=== PATIENT | female | born 1950 | race Caucasian/White ===

== ENCOUNTER 2019-09-05 06:52 | Inpatient (IN) | payer OTHER ==
[~2019-09-05] VITALS: Ht 167.6 cm; Wt 127.5 kg
[~2019-09-05 06:52] MED LIST: CALC600T37 PO; CAR125T PO; CARI-277 PO; CITA20TA3 PO; DIAZ10TA PO; ERGO2000 PO; FER300LQ PO; GABA100C PO; HYDR-4833 PO; POTA12PO2 PO; SIMV-8 PO; SUCR1SUS10 PO
[2019-09-05 08:15] LABS: Basophils # (auto) 0.1 uL; Basophils % (auto) 0.6 % (0.0-2.0); Eosinophils # (auto) 0.1 uL; Eosinophils % (auto) 0.9 % (0.0-7.0); Hematocrit 35.2 % (36.0-46.0); Hemoglobin 11.4 g/dL (12.2-16.2); Lymphocytes # (auto) 0.8 uL; Lymphocytes % (auto) 8.8 % (10.0-50.0); Mean Corpuscular Hemoglobin 28.2 pg (28.0-32.0); Mean Corpuscular Hgb Conc. 32.3 g/dL (32.0-36.0); Mean Corpuscular Volume 87.3 fL (80.0-100.0); Monocytes # (auto) 0.5 uL; Monocytes % (auto) 5.4 % (0.0-12.0); Neutrophils # (auto) 7.7 uL; Neutrophils % (auto) 84.3 % (37.0-80.0); Nucleated Red Blood Cells % 0.1 %; Platelet Count (auto) 261 10^3/uL (140-450); Red Blood Cells 4.03 10^6/uL (4.0-5.20); Red Cell Distribution Width 18.2 % (11.8-14.3); White Blood Cell 9.1 10^3/uL (4.4-10.8)
[2019-09-05 08:30] LABS: INR 1.04 (0.9-1.15); Partial Thromboplastin Time 25.9 sec (23.64-32.05)
[2019-09-05 08:35] LABS: Albumin 3.1 g/dL (3.4-5.0); Calcium 8.5 mg/dL (8.5-10.1)
[2019-09-05 08:39] LABS: Bilirubin, Total 1.1 mg/dL (0.2-1.0); Total Protein 8.1 g/dL (6.4-8.2)
[2019-09-05] MEDS ORDERED: SODIUM CHLORIDE 0.9% 1,000 ML IV ONE (08:39)
[2019-09-05] MEDS: FUROSEMIDE 40 MG/4 ML VIAL IV ONE ×2 (08:45→09:25)
[2019-09-05] MEDS: SPIRONOLACTONE 25 MG TAB PO ONE ×2 (08:45→09:26)
[2019-09-05] MEDS ORDERED: CLOP75TA41 PO (10:26)
[2019-09-05] MEDS ORDERED: FURO40TA4 PO (10:29)
[2019-09-05] MEDS ORDERED: LEVO25TA6 PO (10:29)
[2019-09-05] MEDS ORDERED: IPRATROPIUM BROM 0.5 MG/2.5ML INH SOL NEB ONE (11:00)
[2019-09-05] MEDS ORDERED: ALBUTEROL SULF 2.5 MG/0.5ML(0.5%) NEB SOLN NEB ONE (11:00)
[2019-09-05 11:16] LABS: Urine Bacteria NONE SEEN /hpf (None Seen); Urine Blood Negative /uL (Negative); Urine Specific Gravity 1.006 (1.001-1.035); Urine WBC 1 /hpf (0 - 5)
[2019-09-05] MEDS ORDERED: ACETAMINOPHEN 325 MG TAB PO PRN (11:30)
[2019-09-05] MEDS ORDERED: MORPHINE SULF INJ 2 MG/ML SYRINGE 1ML IV PRN (11:30)
[2019-09-05] MEDS ORDERED: NITROGLYCERIN 0.4 MG SL TAB SL PRN (11:30)
[2019-09-05] MEDS ORDERED: MORPHINE SULFATE 4 MG/ML SYR/VIAL IV PRN (11:30)
[2019-09-05] MEDS: HYDROcodone-ACET 5/325MG TAB PO PRN (12:36)
--- NOTE | 2019-09-05 13:40 | NUR ---
REPORT RECEIVED FROM REGIONAL ENVIRONMENTAL MANAGER NIKOLE. PT ARRIVED TO UNIT, AWAKE, ALERT, ORIENTEDx4 ACCOMPANIED BY FAMILY. SOB ON EXERTION PT ON 3LNC 94% RUELAS CATH IN PLACE WITH PALE YELLOW URINE IN COLLECTING BAG. PT ORIENTED TO ROOM ENVIRONMENT AND EQUIPMENT, IV FLUIDS RESUMED PER ORDER. BED LOCKED AND IN LOWES POSITION, CALL LIGHT WITHIN REACH. WILL CONTINUE TO MONITOR.
[2019-09-05] MEDS ORDERED: HEPARIN SODIUM (PORCINE) 5000 UNITS/ML 1ML VIAL ONE (14:47)
[2019-09-05 14:59] VITALS: BP 175/64
--- NOTE | 2019-09-05 15:06 | NUR ---
SPOKE TO [facility] PHARMACIST REGARDING PIXIS DISCREPANCY ON TAKING HEPARIN VIAL. PER DUY OK TO ADMINISTER MEDICATION ON 1300 SLOT. STOCK MED NOT USED. ONLY ONE VIAL OF 5000UNITS PROCURED, WILL ADMINISTER PER EMAR.
[2019-09-05] MEDS: HEPARIN SODIUM (PORCINE) 5000 UNITS/ML 1ML VIAL SC SCH ×2 (15:10→22:04)
--- NOTE | 2019-09-05 15:30 | NUR ---
DR. CHENEY CONSULT CALLED.
--- NOTE | 2019-09-05 16:45 | NUR ---
PT C/O SOB; DR. PATTEN MADE AWARE. ORDERS RECEIVED FOR BREATHING Tx; ORDER INPUT.
[2019-09-05] MEDS: FUROSEMIDE 40 MG/4 ML VIAL IV SCH (18:16)
[2019-09-05 18:29] VITALS: BP 129/67
[2019-09-05] MEDS: IPRATROPIUM BROM 0.5 MG/2.5ML INH SOL NEB SCH ×2 (19:03→23:15)
[2019-09-05] MEDS: ALBUTEROL SULF 2.5 MG/0.5ML(0.5%) NEB SOLN NEB SCH ×2 (19:04→23:15)
--- NOTE | 2019-09-05 21:00 | NUR ---
RECEIVE IN BED WATCHING TV STATES SHE DOES NOT FEEL WELL NO SOB IS ON OXYGEN 3LITRE REPOSITIONED AND MADE COMFORTABLE
[2019-09-05 21:35] VITALS: BP 153/92
[2019-09-06] VITALS (7 sets, daily range): BP systolic 114–160; BP diastolic 57–92
[2019-09-06] MEDS: ALBUTEROL SULF 2.5 MG/0.5ML(0.5%) NEB SOLN NEB SCH ×6 (02:51→22:29)
[2019-09-06] MEDS: IPRATROPIUM BROM 0.5 MG/2.5ML INH SOL NEB SCH ×6 (02:51→22:29)
[2019-09-06] MEDS: ONDANSETRON HCL 4 MG/2 ML VIAL IV PRN ×2 (03:22→20:17)
[2019-09-06] MEDS: FUROSEMIDE 40 MG/4 ML VIAL IV SCH ×2 (05:44→18:08)
[2019-09-06] MEDS: HEPARIN SODIUM (PORCINE) 5000 UNITS/ML 1ML VIAL SC SCH ×2 (10:51→22:22)
[2019-09-06] MEDS: HYDROcodone-ACET 5/325MG TAB PO PRN ×3 (12:54→22:39)
--- NOTE | 2019-09-06 14:01 | NUR ---
I received a call from Kyle de la rosa [facility]-she provided me with authorization number for [facility]----[id number] and authorization number for FWW from is [id number].
--- NOTE | 2019-09-06 15:47 | NUR ---
D/C Planning Per consult for Home Health safety evaluation, physical therapy and FWW. Contacted [facility] ph:) Fax:) faxed medical records. Per Joan from [facility] Pt has been accepted and service to start within 48hrs upon d/c day. Contacted [facility]:( [phone]) Fax:) Faxed medical records spoke to Tiesha. Tiesha from & advised me FWW will be deliver at bedside upon d/c day. Contacted [facility] Ph:) Fax:( [phone]) faxed medical records. Authorization was given to ASHUTOSH Chand. Authorization has been given to home health and DME. Addendum: 09/06/19 at 1558 by CYNDEE SIMONS Amended: Links added.
--- NOTE | 2019-09-06 19:00 | NUR ---
OPENING NOTE Received report from day shift RN. Patient is in bed, A&O X's 4 with no s/s of distress. Patient reports feeling a little nauseas due to low appetite and taking medication throughout the day. Educated patient about medication to help this. Patient verbalized understanding and agreed to receive Zofran as ordered. Educated patient on POC and to use call light when in need of assistance and when needing to get out of bed. Patient verbalized understanding. Bed is in lowest/locked position with side rails up X's 2 and call light is within reach of patient. Commode is at bedside. Will continue care.
[2019-09-07] MEDS: IPRATROPIUM BROM 0.5 MG/2.5ML INH SOL NEB SCH ×4 (02:14→14:30)
[2019-09-07] MEDS: ALBUTEROL SULF 2.5 MG/0.5ML(0.5%) NEB SOLN NEB SCH ×4 (02:14→14:31)
[2019-09-07 05:06] VITALS: BP 128/96
[2019-09-07] MEDS: FUROSEMIDE 40 MG/4 ML VIAL IV SCH (05:29)
--- NOTE | 2019-09-07 06:34 | NUR ---
PATIENT SITTING AT EDGE OF BED Patient sitting at edge of bed. Patient A&O X's 4 with no s/s of distress. Call light is within reach of patient. Patient said she will call when ready to lay back down in bed.
--- NOTE | 2019-09-07 06:57 | NUR ---
PATIENT BACK INTO BED Patient back into bed. No s/s of distress noted.
[2019-09-07] MEDS: HYDROcodone-ACET 5/325MG TAB PO PRN (08:11)
[2019-09-07 08:41] VITALS: BP 103/77
--- NOTE | 2019-09-07 09:26 | NUR ---
Hospitalist at bedside MD Fleming at bedside, aware of patient's status. New orders received for dc home this afternoon. Patient agrees and verbalized understanding.
[2019-09-07] MEDS ORDERED: DIAZEPAM 5 MG TAB PO ONE (09:30)
[2019-09-07] MEDS ORDERED: CITALOPRAM HYDROBR 20 MG TAB PO ONE (09:30)
[2019-09-07 10:26] LABS: BUN/Creatinine Ratio 13.6; Calcium 8.4 mg/dL (8.5-10.1); Potassium 3.6 mmol/L (3.5-5.1)
--- NOTE | 2019-09-07 10:30 | NUR ---
Regarding meds Patient states she already had Celexa because her brought it from home so she took it. Pt instructed to not take any other meds unless given by primary rn she verbalized understanding. Patient's also states she does not take Valium or has taken it for "a long time". Valium and Celexa not given. Will dc as ordered.
[2019-09-07] MEDS: HEPARIN SODIUM (PORCINE) 5000 UNITS/ML 1ML VIAL SC SCH (10:32)
[2019-09-07 13:00] VITALS: BP 144/78
--- NOTE | 2019-09-07 13:30 | NUR ---
Larry catheter dc'd Order to discontinue larry catheter. Larry dc'd with clean technique following deflation of balloon. Patient tolerated well with no complaints of pain. Continue care.
--- NOTE | 2019-09-07 16:10 | NUR ---
Discharge instructions given as ordered. Encourage to follow up with PMD as instructed. All questions and concerns addressed. Patient verbalized understanding. Medication reconciliation form completed and copy given to patient. IV removed with catheter intact, pressure dressing applied. Telemetry unit returned to ICU. Patient taken to vehicle via wheelchair with all personal belongings including home portable oxygen, accompanied by staff and family member. No distress noted at time of departure.
== END 2019-09-07 16:10 | disposition home health service (06) | DRG 189 ==
LOC: ER 06:52 → TELE 06:53 → TELE-CENTR 13:33
PROVIDERS: ADMIT Internal Medicine; ATTEND Internal Medicine
DX: J96.20 Acute and chronic respiratory failure, unspecified whether with hypoxia or hypercapnia (principal); I50.43 Acute on chronic combined systolic (congestive) and diastolic (congestive) heart failure; I13.0 Hypertensive heart and chronic kidney disease with heart failure and stage 1 through stage 4 chronic kidney disease, or unspecified chronic kidney disease; E44.1 Mild protein-calorie malnutrition; Z68.42 Body mass index [BMI] 45.0-49.9, adult; J44.9 Chronic obstructive pulmonary disease, unspecified; N18.9 Chronic kidney disease, unspecified; F41.9 Anxiety disorder, unspecified; E78.5 Hyperlipidemia, unspecified; E66.01 Morbid (severe) obesity due to excess calories; E11.22 Type 2 diabetes mellitus with diabetic chronic kidney disease; F17.210 Nicotine dependence, cigarettes, uncomplicated; E11.21 Type 2 diabetes mellitus with diabetic nephropathy; E03.9 Hypothyroidism, unspecified; I25.10 Atherosclerotic heart disease of native coronary artery without angina pectoris; Z90.710 Acquired absence of both cervix and uterus; Z99.81 Dependence on supplemental oxygen; Z88.5 Allergy status to narcotic agent; Z91.19 Patient's noncompliance with other medical treatment and regimen; Z90.49 Acquired absence of other specified parts of digestive tract; Z82.49 Family history of ischemic heart disease and other diseases of the circulatory system; Z83.3 Family history of diabetes mellitus
CPT/HCPCS: 36415; 71046; 80048; 80053; 81001; 83735; 83880; 84443; 84484; 85025; 85610; 85730; 93005; 93306; 94640; 94761; 96361; 96374; G0378; J2405

== ENCOUNTER 2020-05-15 20:08 | Inpatient (IN) | payer OTHER ==
[~2020-05-15] VITALS: Ht 162.6 cm; Wt 132.2 kg
[~2020-05-15 20:08] MED LIST changes: +CLOP75TA41 PO; +FURO40TA4 PO; +LEVO25TA6 PO; -SIMV-8 PO
[2020-05-15] MEDS ORDERED: ALBUTEROL SULF 2.5 MG/0.5ML(0.5%) NEB SOLN HHN ONE (20:30)
[2020-05-15] MEDS ORDERED: methylPREDNISolone SOD SUCC 125 MG/2 ML VL IV ONE (20:30)
[2020-05-15] MEDS ORDERED: IPRATROPIUM BROM 0.5 MG/2.5ML INH SOL HHN ONE (20:30)
[2020-05-15 21:33] LABS: Basophils # (auto) 0.1 10 ^3/uL (0-0.2); Basophils % (auto) 0.6 % (0.0-2.0); Eosinophils # (auto) 0.2 10 ^3/uL (0-0.8); Eosinophils % (auto) 1.7 % (0.0-7.0); Hematocrit 35.1 % (36.0-46.0); Hemoglobin 11.6 g/dL (12.2-16.2); Lymphocytes # (auto) 0.8 10 ^3/uL (0.4-5.4); Lymphocytes % (auto) 8.4 % (10.0-50.0); Mean Corpuscular Hemoglobin 28.4 pg (28.0-32.0); Mean Corpuscular Hgb Conc. 33.1 g/dL (32.0-36.0); Mean Corpuscular Volume 85.9 fL (80.0-100.0); Monocytes # (auto) 0.6 10 ^3/uL (0-1.3); Monocytes % (auto) 5.9 % (0.0-12.0); Neutrophils # (auto) 7.8 10 ^3/uL (1.6-8.6); Neutrophils % (auto) 83.4 % (37.0-80.0); Nucleated Red Blood Cells % 0.2 %; Platelet Count (auto) 212 10^3/uL (140-450); Red Blood Cells 4.09 10^6/uL (4.0-5.20); Red Cell Distribution Width 18.5 % (11.8-14.3); White Blood Cell 9.4 10^3/uL (4.4-10.8)
[2020-05-15 21:48] LABS: Urine Bacteria MANY /hpf (None Seen); Urine Blood Negative /uL (Negative); Urine Mucus FEW (None Seen); Urine Specific Gravity 1.008 (1.001-1.035); Urine WBC 130 /hpf (0 - 5)
[2020-05-15 21:50] LABS: Alanine Aminotransferase 14 U/L (13-56); Anion Gap 9 (5-15); Aspartate Aminotransferase 13 U/L (15-37); BUN/Creatinine Ratio 16.9; Blood Urea Nitrogen 35 mg/dL (7-18); Calcium 8.3 mg/dL (8.5-10.1); Carbon Dioxide 28 mmol/L (21-32); Chloride 99 mmol/L (98-107); GFR African American 30 mL/min; GFR Non-African American 25 mL/min; Glucose 163 mg/dL (74-106); Magnesium 2.2 mg/dL (1.6-2.6); Potassium 3.4 mmol/L (3.5-5.1); Sodium 136 mmol/L (136-145)
[2020-05-15 21:52] LABS: Lactic Acid w/Reflex 2.3 mmol/L (0.4-2.0)
[2020-05-15 21:55] LABS: Alkaline Phosphatase 120 U/L (45-117); Bilirubin, Total 0.7 mg/dL (0.2-1.0)
[2020-05-15] MEDS ORDERED: cefTRIAXone 1GM/50ML D5W 50 ML IV ONE (22:15)
[2020-05-15] MEDS ORDERED: FUROSEMIDE 20 MG/2 ML VIAL IV ONE (22:15)
[2020-05-15] MEDS ORDERED: SODIUM CHLORIDE 0.9% 1,000 ML IV ONE (22:15)
[2020-05-15] MEDS ORDERED: TEMAZEPAM 15 MG CAP PO PRN (22:45)
[2020-05-15] MEDS ORDERED: ONDANSETRON HCL 4 MG/2 ML VIAL IV PRN (22:45)
[2020-05-15] MEDS ORDERED: POTASSIUM CHL 20 Meq TABLET PO ONE (22:45)
[2020-05-15] MEDS ORDERED: MORPHINE SULF INJ 2 MG/ML SYRINGE 1ML IV PRN (22:45)
[2020-05-15] MEDS ORDERED: NITROGLYCERIN 0.4 MG SL TAB SL PRN (22:45)
[2020-05-15] MEDS ORDERED: ACETAMINOPHEN 325 MG TAB PO PRN (22:45)
[2020-05-15] MEDS ORDERED: DEXTROSE (50%) 50ML SYRG IV PRN (22:45)
[2020-05-16] VITALS (8 sets, daily range): BP systolic 101–134; BP diastolic 57–89
[2020-05-16] MEDS: ALBUTEROL SULF 2.5 MG/0.5ML(0.5%) NEB SOLN NEB SCH ×4 (00:05→18:08)
[2020-05-16] MEDS: IPRATROPIUM BROM 0.5 MG/2.5ML INH SOL NEB PRN ×4 (00:05→18:08)
[2020-05-16] MEDS: ACCU-CHEK COMFORT CURVE STRIP VI SCH ×4 (01:18→17:30)
[2020-05-16] MEDS: InsuLIN REG 1unit/0.01ml Soln (100units/ml) SC SCH ×4 (01:34→18:48)
--- NOTE | 2020-05-16 02:43 | NUR ---
Telemetry admit from ER DAVIDE HUNT admitted to Telemetry unit. Patient oriented to SHARYN GOODMAN, aman RN, unit, room, bed, and unit policies regarding patient care and visiting hours. Patient now on continuous telemetry monitoring, tele box #84 and telemetry reading on arrival to unit is atrial fibrillation. Patient placed on bedside oxygen, weighed by bed scale and encouraged to call if they need something. All questions and concerns addressed, patient verbalized understanding. Patient able to stand up and transfer to bedside commode. Skin intact, bruising noted to BUE. On 02 3L via n/c, 02 sat 92-93%.
[2020-05-16] MEDS: LEVOTHYROXINE SODIUM 25 MCG TAB PO SCH (05:23)
[2020-05-16] MEDS: GABAPENTIN 100 MG CAP PO SCH ×3 (05:23→21:19)
[2020-05-16] MEDS ORDERED: FUROSEMIDE 40 MG/4 ML VIAL IV SCH (06:00)
[2020-05-16 06:20] LABS: Potassium 3.4 mmol/L (3.5-5.1)
[2020-05-16 06:25] LABS: Basophils # (auto) 0 10 ^3/uL (0-0.2); Calcium 8.6 mg/dL (8.5-10.1); Eosinophils # (auto) 0 10 ^3/uL (0-0.8); Hemoglobin 11.4 g/dL (12.2-16.2); Lymphocytes # (auto) 0.4 10 ^3/uL (0.4-5.4); Lymphocytes % (auto) 4.5 % (10.0-50.0); Mean Corpuscular Hemoglobin 28.2 pg (28.0-32.0); Mean Corpuscular Hgb Conc. 32.6 g/dL (32.0-36.0); Mean Corpuscular Volume 86.5 fL (80.0-100.0); Monocytes # (auto) 0.1 10 ^3/uL (0-1.3); Monocytes % (auto) 0.6 % (0.0-12.0); Neutrophils # (auto) 9.2 10 ^3/uL (1.6-8.6); Neutrophils % (auto) 94.9 % (37.0-80.0); Nucleated Red Blood Cells % 0.1 %; Platelet Count (auto) 217 10^3/uL (140-450); Red Blood Cells 4.04 10^6/uL (4.0-5.20); Red Cell Distribution Width 18.2 % (11.8-14.3); White Blood Cell 9.7 10^3/uL (4.4-10.8)
--- NOTE | 2020-05-16 07:28 | NUR ---
OPENING SHIFT NOTE Assumed care of patient from nightclub manager RN. Patient is alert and oriented x4, no signs of distress noted. Patient was updated on the plan of care and verbalized understanding. Patient is on oxygen at 3L/min via nasal cannula saturation is 93%. Commode at bedside. Bed is locked, in the lowest position, side rails up x2 and call light is in reach. Patient was encouraged to call for assistance as needed.
[2020-05-16] MEDS ORDERED: DIGOXIN (250MCG/ML) 2 ML AMPULE IV ONE (09:45)
[2020-05-16] MEDS ORDERED: CLOPIDOGREL BISULFATE 75 MG TAB PO SCH (10:00)
[2020-05-16] MEDS ORDERED: POTASSIUM CHL 10 Meq TABLET PO SCH (10:00)
[2020-05-16 11:03] LABS: INR 1.07 (0.9-1.15)
[2020-05-16] MEDS: CARVEDILOL 12.5 MG TAB PO SCH ×2 (11:04→21:20)
[2020-05-16] MEDS: PANTOPRAZOLE 40 MG TAB PO SCH (11:04)
[2020-05-16] MEDS ORDERED: POTASSIUM CHL 20 Meq TABLET PO ONE (12:15)
[2020-05-16] MEDS ORDERED: CITA10TA70 PO (12:47)
[2020-05-16] MEDS ORDERED: LEVO50TA7 PO (12:47)
[2020-05-16] MEDS ORDERED: ERGO2000 PO (12:47)
[2020-05-16] MEDS ORDERED: SILV-21 TOP (12:47)
[2020-05-16] MEDS ORDERED: FLUT1AER6 IN ×2 (12:47→16:49)
[2020-05-16] MEDS ORDERED: PANT40TA2 PO (12:47)
[2020-05-16] MEDS ORDERED: ATOR10TA52 PO (12:47)
[2020-05-16] MEDS ORDERED: FURO40TA4 PO (12:47)
[2020-05-16] MEDS ORDERED: BACL10TA PO (12:47)
[2020-05-16] MEDS ORDERED: CHOL20009 PO (12:48)
--- NOTE | 2020-05-16 13:36 | NUR ---
PAGED MD CHENEY regarding cardiac clearance for discharge, awaiting call back.
--- NOTE | 2020-05-16 14:12 | NUR ---
CALL FROM CHENEY Per MD patient is cleared for discharge, patient to follow up as out patient.
--- NOTE | 2020-05-16 14:15 | NUR ---
MESSAGE LEFT FOR Rob BEDOYA. Regarding patient being cleared by Azul for discharge.
--- NOTE | 2020-05-16 14:40 | NUR ---
IV insertion IV access obtained, via clean sterile technique by inserting 22 gauge catheter at left forearm after 4 attempts. IV secured properly. No trauma to site. Patient tolerated well. IV to the left hand was removed with clean technique and pressure dressing applied.
[2020-05-16] MEDS ORDERED: CITA10TA59 PO (16:49)
[2020-05-16] MEDS ORDERED: DIPH25CA66 PO (16:49)
[2020-05-16] MEDS ORDERED: FAMO-12 PO (16:49)
--- NOTE | 2020-05-16 18:34 | NUR ---
MOQATTASH AT BEDSIDE UPDATED ON PATIENT STATUS, NEW ORDERS TO CONTINUE HOME MEDICATIONS, WILL INPUT.
[2020-05-16] MEDS: RIVAROXABAN 15 MG TAB PO SCH (18:47)
[2020-05-16] MEDS ORDERED: PROCHLORPERAZINE MALEATE 10 MG TAB PO PRN (19:00)
[2020-05-16] MEDS ORDERED: diphenhdrAMINE HCL 25 MG CAP PO PRN (19:00)
--- NOTE | 2020-05-16 19:20 | NUR ---
Opening Shift Note Received report from LENARD Breaux and assumed care of patient, awake and alert. No S/S of distress/SOB or pain. Instructed patient and to call for assist if needed and patient verbalized understanding . Will continue to monitor .
[2020-05-16] MEDS: ATORVASTATIN 20 MG TAB PO SCH (21:19)
[2020-05-16] MEDS: HYDROcodone-ACET 5/325MG TAB PO PRN (21:24)
[2020-05-17] MEDS: IPRATROPIUM BROM 0.5 MG/2.5ML INH SOL NEB PRN ×4 (00:18→17:58)
[2020-05-17] MEDS: ALBUTEROL SULF 2.5 MG/0.5ML(0.5%) NEB SOLN NEB SCH ×4 (00:18→17:58)
[2020-05-17] MEDS: ACCU-CHEK COMFORT CURVE STRIP VI SCH ×4 (00:25→17:29)
[2020-05-17] MEDS: InsuLIN REG 1unit/0.01ml Soln (100units/ml) SC SCH ×4 (00:26→17:29)
[2020-05-17 05:00] VITALS: BP 106/70
[2020-05-17] MEDS: LEVOTHYROXINE SODIUM 25 MCG TAB PO SCH (06:17)
[2020-05-17] MEDS: GABAPENTIN 100 MG CAP PO SCH ×3 (06:17→21:31)
[2020-05-17] MEDS: SUCRALFATE 1 GM/10 ML ORAL SUSP PO SCH ×3 (06:17→16:51)
--- NOTE | 2020-05-17 07:45 | NUR ---
Opening Note Assumed pt care from NOC RN. Pt is a/ox4 with no s/s of distress or SOB. Pt is currently sitting upright in bed on 3L NC with no complaints at this time. Discussed POC with pt and pending VQ scan; pt verbalized understanding. Safety measures maintained with call light within reach, bed in lowest position and side rails up. Will continue to monitor for changes.
[2020-05-17] MEDS: FERROUS SULFATE 325 MG TAB PO SCH ×2 (07:50→17:29)
--- NOTE | 2020-05-17 08:00 | NUR ---
Pt Off Unit Pt off unit for VQ scan. Transferred via wheelchair. A/ox4 with no s/s of distress or SOB. Addendum: 05/17/20 at 0824 by NENA CHE RN RN Pt back on unit. A/ox4 with no s/s of distress.
[2020-05-17 08:18] VITALS: BP 100/58
[2020-05-17] MEDS: PANTOPRAZOLE 40 MG TAB PO SCH (08:53)
[2020-05-17] MEDS: CARVEDILOL 12.5 MG TAB PO SCH ×2 (08:53→21:31)
[2020-05-17] MEDS: HYDROcodone-ACET 5/325MG TAB PO PRN ×2 (08:56→21:32)
[2020-05-17] MEDS ORDERED: FUROSEMIDE 40 MG TAB PO SCH (10:00)
[2020-05-17] MEDS ORDERED: CITALOPRAM HYDROBR 20 MG TAB PO SCH (10:00)
[2020-05-17] MEDS ORDERED: POTASSIUM CHL 20 Meq TABLET PO SCH (10:00)
[2020-05-17 13:20] VITALS: BP 119/73
--- NOTE | 2020-05-17 13:28 | NUR ---
Left Message for Dr Rob Kolb Left message regarding cardiac clearance from Dr Azul. Pending d/c orders. Will continue to monitor.
[2020-05-17 17:16] VITALS: BP 105/56
[2020-05-17] MEDS: RIVAROXABAN 15 MG TAB PO SCH (17:29)
--- NOTE | 2020-05-17 19:30 | NUR ---
Opening Note Received report from willie Mott RN. Assumed care of patient, awake and alert. No S/S of distress/SOB or pain. On 2LNC saturating at 96%. Instructed on POC and to call for assist PRN, will continue to monitor for changes Q1hr and PRN. Bed placed in lowest position, bed alarm turned on and call light within reach.
[2020-05-17 20:14] VITALS: BP 124/81
[2020-05-17] MEDS ORDERED: metFORMIN HYDROCHLORIDE 500 MG TAB PO SCH (20:30)
[2020-05-17] MEDS ORDERED: RIV15T PO (20:33)
[2020-05-17] MEDS ORDERED: IPR002IS NEB (20:33)
[2020-05-17] MEDS ORDERED: FURO40TA4 PO (20:33)
[2020-05-17] MEDS ORDERED: LEVO50TA7 PO (20:36)
--- NOTE | 2020-05-17 20:36 | NUR ---
Dr Ana Paula Kolb at the station. Discharged order in. Will let patient know.
[2020-05-17] MEDS ORDERED: NITR-52 PO (21:05)
[2020-05-17] MEDS ORDERED: NITROFURANTOIN 100 mg CAP PO ONE ×2 (21:15→22:00)
--- NOTE | 2020-05-17 21:30 | NUR ---
Dr Kolb wants to make sure patient will get her first dose of macrobid 100 mg before discharge.
[2020-05-17] MEDS: ATORVASTATIN 20 MG TAB PO SCH (21:32)
--- NOTE | 2020-05-17 22:01 | NUR ---
Macrobid given as ordered
--- NOTE | 2020-05-17 22:21 | NUR ---
Discharge instructions given as ordered. Encourage to follow up with PMD as instructed. All questions and concerns addressed. Patient verbalized understanding. Medication reconciliation form completed and copy given to patient. IV removed with catheter intact, pressure dressing applied. Telemetry unit returned to ICU. Patient taken to vehicle via wheelchair with all personal belongings, accompanied by staff. No distress noted at time of departure.
[2020-05-18] MEDS ORDERED: NITROFURANTOIN 100 mg CAP PO SCH (10:00)
== END 2020-05-17 22:05 | disposition home or self-care (01) | DRG 291 ==
LOC: EDBD 20:08 → ER 20:08 → TELE 20:09 → TELE-WESTW 23:34 → WEST WING 23:49 → TELE-WESTW 23:50
PROVIDERS: ADMIT Nurse Practitioner; ATTEND Internal Medicine
DX: I13.0 Hypertensive heart and chronic kidney disease with heart failure and stage 1 through stage 4 chronic kidney disease, or unspecified chronic kidney disease (principal); I50.33 Acute on chronic diastolic (congestive) heart failure; Z68.43 Body mass index [BMI] 50.0-59.9, adult; N39.0 Urinary tract infection, site not specified; J96.11 Chronic respiratory failure with hypoxia; N18.3 Chronic kidney disease, stage 3 (moderate); E66.01 Morbid (severe) obesity due to excess calories; E03.9 Hypothyroidism, unspecified; E11.22 Type 2 diabetes mellitus with diabetic chronic kidney disease; Z91.19 Patient's noncompliance with other medical treatment and regimen; I25.10 Atherosclerotic heart disease of native coronary artery without angina pectoris; E78.5 Hyperlipidemia, unspecified; I27.20 Pulmonary hypertension, unspecified; I48.91 Unspecified atrial fibrillation; Z82.49 Family history of ischemic heart disease and other diseases of the circulatory system; Z90.710 Acquired absence of both cervix and uterus; Z83.3 Family history of diabetes mellitus; J44.9 Chronic obstructive pulmonary disease, unspecified; Z90.49 Acquired absence of other specified parts of digestive tract; I50.82 Biventricular heart failure; F32.9 Major depressive disorder, single episode, unspecified
CPT/HCPCS: 36415; 36600; 71045; 78582; 80048; 80053; 81001; 82805; 82962; 83605; 83735; 83880; 84443; 84484; 85025; 85379; 85610; 87040; 87086; 87804; 93005; 93970; 94640; 96361; 96365; 96375; G0378; J0696; J1815; Q0164

== ENCOUNTER 2020-12-30 18:40 | Inpatient (IN) | payer OTHER ==
[~2020-12-30] VITALS: Ht 165.1 cm; Wt 134.1 kg
[~2020-12-30 18:40] MED LIST changes: +ATOR10TA52 PO; -CALC600T37 PO; -CARI-277 PO; +CHOL20009 PO; +CITA10TA70 PO; -CITA20TA3 PO; -CLOP75TA41 PO; -DIAZ10TA PO; +DIPH25CA66 PO; -ERGO2000 PO; +FLUT1AER6 IN; +IPR002IS NEB; -LEVO25TA6 PO; +LEVO50TA7 PO; +NITR-52 PO; +PANT40TA2 PO; +RIV15T PO
[2020-12-30 20:03] LABS: Basophils # (auto) 0 10 ^3/uL (0-0.2); Basophils % (auto) 0.3 % (0.0-2.0); Eosinophils # (auto) 0 10 ^3/uL (0-0.8); Eosinophils % (auto) 0.1 % (0.0-7.0); Hematocrit 35.2 % (36.0-46.0); Hemoglobin 11.7 g/dL (12.2-16.2); Lymphocytes # (auto) 0.4 10 ^3/uL (0.4-5.4); Lymphocytes % (auto) 5.8 % (10.0-50.0); Mean Corpuscular Hemoglobin 28.7 pg (28.0-32.0); Mean Corpuscular Hgb Conc. 33.2 g/dL (32.0-36.0); Mean Corpuscular Volume 86.4 fL (80.0-100.0); Monocytes # (auto) 0.4 10 ^3/uL (0-1.3); Monocytes % (auto) 6.6 % (0.0-12.0); Neutrophils # (auto) 5.4 10 ^3/uL (1.6-8.6); Neutrophils % (auto) 87.2 % (37.0-80.0); Nucleated Red Blood Cells % 0.1 %; Platelet Count (auto) 87 10^3/uL (140-450); Red Blood Cells 4.07 10^6/uL (4.0-5.20); Red Cell Distribution Width 18.1 % (11.8-14.3); White Blood Cell 6.2 10^3/uL (4.4-10.8)
[2020-12-30 20:30] LABS: Albumin 2.9 g/dL (3.4-5.0); Calcium 7.8 mg/dL (8.5-10.1); Potassium 3.2 mmol/L (3.5-5.1)
[2020-12-30] MEDS ORDERED: AZITHROMYCIN 500MG/ 250ML 250 ML IV ONE (20:30)
[2020-12-30 20:38] LABS: BUN/Creatinine Ratio 18.7; Bilirubin, Total 0.5 mg/dL (0.2-1.0); Total Protein 6.8 g/dL (6.4-8.2)
[2020-12-30 21:15] LABS: INR 1.03 (0.9-1.15)
[2020-12-30] MEDS ORDERED: ASPirin 81 mg TAB PO ONE (21:15)
[2020-12-30] MEDS ORDERED: ACETAMINOPHEN 325 MG TAB PO ONE (22:15)
[2020-12-30] MEDS ORDERED: DOCUSATE SOD 100 MG CAP PO PRN (23:00)
[2020-12-30] MEDS ORDERED: ONDANSETRON HCL 4 MG/2 ML VIAL IV PRN (23:00)
[2020-12-30] MEDS ORDERED: DEXTROSE (50%) 50ML SYRG IV PRN (23:00)
[2020-12-30] MEDS ORDERED: ACETAMINOPHEN 325 MG TAB PO PRN (23:00)
[2020-12-30] MEDS ORDERED: NITROGLYCERIN 0.4 MG SL TAB SL PRN (23:00)
[2020-12-30] MEDS: POTASSIUM CHL 20MEQ/100ML 100 ML IV ONE (23:00)
[2020-12-30] MEDS: DOXYCYCLINE 100MG/250ML 250 ML IV SCH (23:40)
[2020-12-31] MEDS: HYDROcodone-ACET 5/325MG TAB PO PRN (01:12)
[2020-12-31 01:26] LABS: BUN/Creatinine Ratio 19.7; Calcium 8.2 mg/dL (8.5-10.1); Potassium 3.2 mmol/L (3.5-5.1)
[2020-12-31 01:29] LABS: Bilirubin, Total 0.6 mg/dL (0.2-1.0); Total Protein 6.7 g/dL (6.4-8.2)
[2020-12-31] MEDS: POTASSIUM CHL 20MEQ/100ML 100 ML IV ONE (01:41)
[2020-12-31] MEDS ORDERED: ALBUTEROL SULF 2.5 MG/0.5ML(0.5%) NEB SOLN NEB SCH (02:00)
[2020-12-31] MEDS ORDERED: IPRATROPIUM BROM 0.5 MG/2.5ML INH SOL NEB SCH (02:00)
[2020-12-31 02:27] LABS: Cholesterol 115 mg/dL (< 200); HDL Cholesterol 43 mg/dL (40-59); LDL Cholesterol 59 mg/dL (< 100); Triglycerides 97 mg/dL (< 150)
[2020-12-31 03:04] LABS: Basophils # (auto) 0 10 ^3/uL (0-0.2); Basophils % (auto) 0.4 % (0.0-2.0); Eosinophils # (auto) 0 10 ^3/uL (0-0.8); Eosinophils % (auto) 0.1 % (0.0-7.0); Hemoglobin 11.2 g/dL (12.2-16.2); Lymphocytes # (auto) 0.5 10 ^3/uL (0.4-5.4); Mean Corpuscular Hemoglobin 28.7 pg (28.0-32.0); Monocytes # (auto) 0.4 10 ^3/uL (0-1.3); Monocytes % (auto) 7.8 % (0.0-12.0); Neutrophils # (auto) 4.4 10 ^3/uL (1.6-8.6); Neutrophils % (auto) 82.7 % (37.0-80.0); Nucleated Red Blood Cells % 0.1 %; Platelet Count (auto) 81 10^3/uL (140-450); Red Blood Cells 3.91 10^6/uL (4.0-5.20); Red Cell Distribution Width 18.1 % (11.8-14.3); White Blood Cell 5.3 10^3/uL (4.4-10.8)
[2020-12-31] MEDS: HEPARIN SODIUM (PORCINE) 5000 UNITS/ML 1ML VIAL SC SCH ×2 (04:45→05:53)
[2020-12-31 04:48] VITALS: BP 127/83
[2020-12-31] MEDS: SODIUM CHLOR 0.9% PF (SALINE LOCK) 10ML VIAL/SYR IV SCH ×3 (05:53→22:19)
[2020-12-31] MEDS: InsuLIN REG 1unit/0.01ml Soln (100units/ml) SC SCH ×4 (06:28→22:19)
[2020-12-31] MEDS: ACCU-CHEK COMFORT CURVE STRIP VI SCH ×4 (06:28→22:19)
[2020-12-31] MEDS: FUROSEMIDE 20 MG/2 ML VIAL IV SCH ×2 (06:28→17:55)
[2020-12-31] MEDS: LEVOTHYROXINE SODIUM 25 MCG TAB PO SCH (06:28)
[2020-12-31 08:00] VITALS: BP 133/66
[2020-12-31 09:13] LABS: Basophils # (auto) 0 10 ^3/uL (0-0.2); Basophils % (auto) 0.3 % (0.0-2.0); Eosinophils # (auto) 0 10 ^3/uL (0-0.8); Eosinophils % (auto) 0.2 % (0.0-7.0); Hemoglobin 12.4 g/dL (12.2-16.2); Lymphocytes # (auto) 0.6 10 ^3/uL (0.4-5.4); Lymphocytes % (auto) 10.8 % (10.0-50.0); Mean Corpuscular Hemoglobin 28.4 pg (28.0-32.0); Mean Corpuscular Hgb Conc. 32.6 g/dL (32.0-36.0); Monocytes # (auto) 0.3 10 ^3/uL (0-1.3); Monocytes % (auto) 5.9 % (0.0-12.0); Neutrophils # (auto) 4.7 10 ^3/uL (1.6-8.6); Neutrophils % (auto) 82.8 % (37.0-80.0); Nucleated Red Blood Cells % 0.1 %; Platelet Count (auto) 84 10^3/uL (140-450); Red Blood Cells 4.36 10^6/uL (4.0-5.20); Red Cell Distribution Width 18.4 % (11.8-14.3); White Blood Cell 5.7 10^3/uL (4.4-10.8)
[2020-12-31 09:50] LABS: BUN/Creatinine Ratio 18.3; Bilirubin, Total 0.7 mg/dL (0.2-1.0); Calcium 7.8 mg/dL (8.5-10.1); Total Protein 7.2 g/dL (6.4-8.2)
[2020-12-31] MEDS ORDERED: HEPARIN SODIUM (PORCINE) 5000 UNITS/ML 1ML VIAL SC SCH (10:00)
[2020-12-31] MEDS ORDERED: ASPirin 81 mg TAB PO SCH (10:00)
[2020-12-31] MEDS: FAMOTIDINE (10MG/ML) 2ML VL IV SCH ×2 (10:34→22:19)
[2020-12-31] MEDS: ASPirin 81 mg TAB PO SCH (10:34)
[2020-12-31] MEDS: MULTIPLE VITAMIN TAB PO SCH (10:35)
[2020-12-31] MEDS: ASCORBIC ACID 500 MG TAB PO SCH ×2 (10:35→22:19)
[2020-12-31] MEDS: ZINC SULFATE 220mg CAP or TAB PO SCH (10:35)
[2020-12-31] MEDS: DOXYCYCLINE 100MG/250ML 250 ML IV SCH ×2 (10:36→22:30)
[2020-12-31] MEDS ORDERED: FUROSEMIDE 20 MG/2 ML VIAL IV ONE (13:30)
[2020-12-31 16:00] VITALS: BP 144/93
[2021-01-01] VITALS: BP 143/93
[2021-01-01] MEDS: HYDROcodone-ACET 5/325MG TAB PO PRN (03:00)
[2021-01-01] MEDS: FUROSEMIDE 20 MG/2 ML VIAL IV SCH ×2 (06:21→17:35)
[2021-01-01] MEDS: LEVOTHYROXINE SODIUM 25 MCG TAB PO SCH (06:21)
[2021-01-01] MEDS: InsuLIN REG 1unit/0.01ml Soln (100units/ml) SC SCH ×4 (06:21→21:31)
[2021-01-01] MEDS: SODIUM CHLOR 0.9% PF (SALINE LOCK) 10ML VIAL/SYR IV SCH ×3 (06:21→21:29)
[2021-01-01] MEDS: ACCU-CHEK COMFORT CURVE STRIP VI SCH ×4 (06:27→21:31)
[2021-01-01 08:00] VITALS: BP 140/77
[2021-01-01 08:23] LABS: Basophils # (auto) 0 10 ^3/uL (0-0.2); Basophils % (auto) 0.3 % (0.0-2.0); Eosinophils # (auto) 0 10 ^3/uL (0-0.8); Eosinophils % (auto) 0.1 % (0.0-7.0); Hematocrit 33.7 % (36.0-46.0); Hemoglobin 11.5 g/dL (12.2-16.2); Lymphocytes # (auto) 0.4 10 ^3/uL (0.4-5.4); Lymphocytes % (auto) 7.5 % (10.0-50.0); Mean Corpuscular Hemoglobin 28.8 pg (28.0-32.0); Mean Corpuscular Hgb Conc. 34.2 g/dL (32.0-36.0); Mean Corpuscular Volume 84.1 fL (80.0-100.0); Monocytes # (auto) 0.3 10 ^3/uL (0-1.3); Monocytes % (auto) 5.1 % (0.0-12.0); Neutrophils # (auto) 4.8 10 ^3/uL (1.6-8.6); Nucleated Red Blood Cells % 0.1 %; Platelet Count (auto) 84 10^3/uL (140-450); Red Blood Cells 4.01 10^6/uL (4.0-5.20); Red Cell Distribution Width 17.8 % (11.8-14.3); White Blood Cell 5.5 10^3/uL (4.4-10.8)
[2021-01-01 08:50] LABS: BUN/Creatinine Ratio 17.6
[2021-01-01 09:02] LABS: Potassium 2.5 mmol/L (3.5-5.1)
[2021-01-01] MEDS: FAMOTIDINE (10MG/ML) 2ML VL IV SCH ×2 (10:00→21:29)
[2021-01-01] MEDS ORDERED: ENOXAPARIN SOD 150 MG/1 ML SYRINGE SC SCH (10:00)
[2021-01-01] MEDS: ZINC SULFATE 220mg CAP or TAB PO SCH (10:05)
[2021-01-01] MEDS: ASPirin 81 mg TAB PO SCH (10:05)
[2021-01-01] MEDS: DexAMETHasone SOD PHOS 10MG/1ML VIAL INJ IV SCH (10:05)
[2021-01-01] MEDS: ASCORBIC ACID 500 MG TAB PO SCH ×2 (10:05→21:29)
[2021-01-01] MEDS: MULTIPLE VITAMIN TAB PO SCH (10:05)
[2021-01-01] MEDS: DOXYCYCLINE 100MG/250ML 250 ML IV SCH ×2 (11:30→21:31)
[2021-01-01] MEDS: POTASSIUM CHL 20MEQ/100ML 100 ML IV SCH ×2 (11:30→13:30)
[2021-01-01] MEDS ORDERED: SPIRONOLACTONE 25 MG TAB PO ONE (11:30)
[2021-01-01] MEDS ORDERED: POTASSIUM CHL 20 Meq TABLET PO ONE ×2 (11:30→15:00)
[2021-01-01 14:11] LABS: Urine Bacteria MANY /hpf (None Seen); Urine Blood 2+ /uL (Negative); Urine Mucus FEW (None Seen); Urine Specific Gravity 1.017 (1.001-1.035); Urine WBC 529 /hpf (0 - 5); Urine WBC Clumps PRESENT /hpf (None Seen)
[2021-01-01 16:00] VITALS: BP 148/99
[2021-01-02] VITALS: BP 135/77
[2021-01-02 02:48] LABS: Protein, Urine 190.5 mg/dL (0.0-11.9)
[2021-01-02] MEDS: FUROSEMIDE 20 MG/2 ML VIAL IV SCH ×2 (05:57→17:57)
[2021-01-02] MEDS: SODIUM CHLOR 0.9% PF (SALINE LOCK) 10ML VIAL/SYR IV SCH ×3 (05:57→22:14)
[2021-01-02] MEDS: LEVOTHYROXINE SODIUM 25 MCG TAB PO SCH (05:58)
[2021-01-02] MEDS: ACCU-CHEK COMFORT CURVE STRIP VI SCH ×4 (06:30→22:09)
[2021-01-02] MEDS: InsuLIN REG 1unit/0.01ml Soln (100units/ml) SC SCH ×4 (06:31→22:13)
[2021-01-02 07:31] LABS: Basophils # (auto) 0 10 ^3/uL (0-0.2); Basophils % (auto) 0.1 % (0.0-2.0); Eosinophils # (auto) 0 10 ^3/uL (0-0.8); Hematocrit 33.3 % (36.0-46.0); Hemoglobin 11.1 g/dL (12.2-16.2); Lymphocytes # (auto) 0.2 10 ^3/uL (0.4-5.4); Lymphocytes % (auto) 3.8 % (10.0-50.0); Mean Corpuscular Hemoglobin 28.2 pg (28.0-32.0); Mean Corpuscular Hgb Conc. 33.4 g/dL (32.0-36.0); Mean Corpuscular Volume 84.4 fL (80.0-100.0); Monocytes # (auto) 0.3 10 ^3/uL (0-1.3); Monocytes % (auto) 4.4 % (0.0-12.0); Neutrophils # (auto) 5.7 10 ^3/uL (1.6-8.6); Neutrophils % (auto) 91.7 % (37.0-80.0); Nucleated Red Blood Cells % 0.2 %; Platelet Count (auto) 94 10^3/uL (140-450); Red Blood Cells 3.95 10^6/uL (4.0-5.20); Red Cell Distribution Width 18.2 % (11.8-14.3); White Blood Cell 6.3 10^3/uL (4.4-10.8)
[2021-01-02 07:45] LABS: Magnesium 2.1 mg/dL (1.6-2.6); Potassium 3.7 mmol/L (3.5-5.1)
[2021-01-02 07:53] LABS: BUN/Creatinine Ratio 18.6; Calcium 8.6 mg/dL (8.5-10.1)
[2021-01-02 08:00] VITALS: BP 142/92
[2021-01-02] MEDS: ALBUTEROL SULF HFA 90MCG INH 200DOSE IN PRN ×4 (08:48→22:08)
[2021-01-02] MEDS ORDERED: SPIRONOLACTONE 25 MG TAB PO ONE (09:00)
[2021-01-02] MEDS: ZINC SULFATE 220mg CAP or TAB PO SCH (11:40)
[2021-01-02] MEDS: MULTIPLE VITAMIN TAB PO SCH (11:40)
[2021-01-02] MEDS: ASCORBIC ACID 500 MG TAB PO SCH ×2 (11:40→22:14)
[2021-01-02] MEDS: FAMOTIDINE (10MG/ML) 2ML VL IV SCH ×2 (11:40→22:14)
[2021-01-02] MEDS: DOXYCYCLINE 100MG/250ML 250 ML IV SCH ×2 (11:40→22:09)
[2021-01-02] MEDS: DexAMETHasone SOD PHOS 10MG/1ML VIAL INJ IV SCH (11:40)
[2021-01-02] MEDS: ASPirin 81 mg TAB PO SCH (11:40)
[2021-01-02 16:00] VITALS: BP 140/89
[2021-01-02] MEDS ORDERED: PATIENTS OWN MEDICATION (xarelto 20 MG) PO SCH (17:00)
[2021-01-02] MEDS: RIVAROXABAN 20 MG TAB PO SCH (17:54)
[2021-01-03] VITALS: BP 144/80
[2021-01-03 00:48] VITALS: BP 144/80
[2021-01-03] MEDS: ACCU-CHEK COMFORT CURVE STRIP VI SCH ×4 (06:09→22:21)
[2021-01-03] MEDS: InsuLIN REG 1unit/0.01ml Soln (100units/ml) SC SCH ×4 (06:11→22:20)
[2021-01-03] MEDS: LEVOTHYROXINE SODIUM 25 MCG TAB PO SCH (06:13)
[2021-01-03] MEDS: FUROSEMIDE 20 MG/2 ML VIAL IV SCH ×2 (06:14→18:45)
[2021-01-03] MEDS: SODIUM CHLOR 0.9% PF (SALINE LOCK) 10ML VIAL/SYR IV SCH ×3 (06:14→22:53)
[2021-01-03 07:13] LABS: Basophils # (auto) 0 10 ^3/uL (0-0.2); Eosinophils # (auto) 0 10 ^3/uL (0-0.8); Hematocrit 34.8 % (36.0-46.0); Hemoglobin 11.8 g/dL (12.2-16.2); Lymphocytes # (auto) 0.2 10 ^3/uL (0.4-5.4); Lymphocytes % (auto) 2.5 % (10.0-50.0); Mean Corpuscular Hemoglobin 28.6 pg (28.0-32.0); Mean Corpuscular Hgb Conc. 33.9 g/dL (32.0-36.0); Mean Corpuscular Volume 84.6 fL (80.0-100.0); Monocytes # (auto) 0.4 10 ^3/uL (0-1.3); Monocytes % (auto) 4.6 % (0.0-12.0); Neutrophils # (auto) 8.7 10 ^3/uL (1.6-8.6); Neutrophils % (auto) 92.9 % (37.0-80.0); Platelet Count (auto) 114 10^3/uL (140-450); Red Blood Cells 4.11 10^6/uL (4.0-5.20); Red Cell Distribution Width 18.4 % (11.8-14.3); White Blood Cell 9.4 10^3/uL (4.4-10.8)
[2021-01-03 07:33] LABS: BUN/Creatinine Ratio 24.1; Calcium 8.8 mg/dL (8.5-10.1); Magnesium 2.1 mg/dL (1.6-2.6); Potassium 3.7 mmol/L (3.5-5.1)
[2021-01-03 08:00] VITALS: BP 149/114
[2021-01-03] MEDS: ASCORBIC ACID 500 MG TAB PO SCH ×2 (10:00→22:00)
[2021-01-03] MEDS: ASPirin 81 mg TAB PO SCH (10:00)
[2021-01-03] MEDS: MULTIPLE VITAMIN TAB PO SCH (10:00)
[2021-01-03] MEDS: ZINC SULFATE 220mg CAP or TAB PO SCH (10:00)
[2021-01-03] MEDS: FAMOTIDINE (10MG/ML) 2ML VL IV SCH ×2 (10:00→22:52)
[2021-01-03] MEDS: DexAMETHasone SOD PHOS 10MG/1ML VIAL INJ IV SCH (10:00)
[2021-01-03] MEDS ORDERED: MORPHINE SULF INJ 2 MG/ML SYRINGE 1ML IV PRN ×2 (10:45→11:15)
[2021-01-03] MEDS: DOXYCYCLINE 100MG/250ML 250 ML IV SCH ×2 (11:00→22:55)
[2021-01-03] MEDS: ALBUTEROL SULF HFA 90MCG INH 200DOSE IN PRN (13:20)
[2021-01-03] MEDS: LORazepam 2MG/ML-1ML VIAL IV PRN ×2 (14:31→22:50)
[2021-01-03 16:00] VITALS: BP 117/84
[2021-01-03] MEDS: RIVAROXABAN 20 MG TAB PO SCH (17:00)
[2021-01-03] MEDS: ALBUTEROL SULF 2.5 MG/0.5ML(0.5%) NEB SOLN NEB SCH (18:59)
[2021-01-03] MEDS: BUDESONIDE (INHALATION) 0.5 MG/2 ML NEB NEB SCH (22:05)
[2021-01-03] MEDS: ENOXAPARIN SOD 150 MG/1 ML SYRINGE SC SCH (22:54)
[2021-01-03 23:53] VITALS: BP 114/46
[2021-01-04] MEDS: LORazepam 2MG/ML-1ML VIAL IV PRN ×3 (02:47→20:53)
[2021-01-04] MEDS: SODIUM CHLOR 0.9% PF (SALINE LOCK) 10ML VIAL/SYR IV SCH ×3 (06:37→22:41)
[2021-01-04] MEDS: FUROSEMIDE 20 MG/2 ML VIAL IV SCH ×2 (06:37→18:46)
[2021-01-04] MEDS: LEVOTHYROXINE SODIUM 25 MCG TAB PO SCH (06:37)
[2021-01-04] MEDS: ACCU-CHEK COMFORT CURVE STRIP VI SCH ×4 (06:41→22:00)
[2021-01-04] MEDS: InsuLIN REG 1unit/0.01ml Soln (100units/ml) SC SCH ×4 (06:41→22:43)
[2021-01-04] MEDS: BUDESONIDE (INHALATION) 0.5 MG/2 ML NEB NEB SCH ×2 (07:08→19:55)
[2021-01-04] MEDS: ALBUTEROL SULF 2.5 MG/0.5ML(0.5%) NEB SOLN NEB SCH ×3 (07:08→19:55)
[2021-01-04 08:00] VITALS: BP 131/78
[2021-01-04] MEDS: ASCORBIC ACID 500 MG TAB PO SCH ×2 (10:00→22:00)
[2021-01-04] MEDS: ASPirin 81 mg TAB PO SCH (10:00)
[2021-01-04] MEDS: MULTIPLE VITAMIN TAB PO SCH (10:00)
[2021-01-04] MEDS: ZINC SULFATE 220mg CAP or TAB PO SCH (10:00)
[2021-01-04] MEDS: DexAMETHasone SOD PHOS 10MG/1ML VIAL INJ IV SCH (10:51)
[2021-01-04] MEDS: ENOXAPARIN SOD 150 MG/1 ML SYRINGE SC SCH (10:53)
[2021-01-04] MEDS: FAMOTIDINE (10MG/ML) 2ML VL IV SCH ×2 (10:53→22:41)
[2021-01-04] MEDS: DOXYCYCLINE 100MG/250ML 250 ML IV SCH ×2 (10:55→22:43)
[2021-01-04 16:00] VITALS: BP 115/71
[2021-01-05] VITALS (20 sets, daily range): BP systolic 0–137; BP diastolic 13–96
[2021-01-05] MEDS: LORazepam 2MG/ML-1ML VIAL IV PRN (02:25)
[2021-01-05] MEDS: FUROSEMIDE 20 MG/2 ML VIAL IV SCH (06:00)
[2021-01-05 06:07] LABS: Basophils # (auto) 0 10 ^3/uL (0-0.2); Eosinophils # (auto) 0 10 ^3/uL (0-0.8); Hematocrit 35.3 % (36.0-46.0); Hemoglobin 11.5 g/dL (12.2-16.2); Lymphocytes # (auto) 0.2 10 ^3/uL (0.4-5.4); Lymphocytes % (auto) 1.5 % (10.0-50.0); Mean Corpuscular Hemoglobin 28.5 pg (28.0-32.0); Mean Corpuscular Hgb Conc. 32.6 g/dL (32.0-36.0); Mean Corpuscular Volume 87.3 fL (80.0-100.0); Monocytes # (auto) 0.6 10 ^3/uL (0-1.3); Monocytes % (auto) 3.7 % (0.0-12.0); Neutrophils # (auto) 14.2 10 ^3/uL (1.6-8.6); Neutrophils % (auto) 94.8 % (37.0-80.0); Nucleated Red Blood Cells % 0.3 %; Platelet Count (auto) 134 10^3/uL (140-450); Red Blood Cells 4.04 10^6/uL (4.0-5.20); Red Cell Distribution Width 18.8 % (11.8-14.3); White Blood Cell 14.9 10^3/uL (4.4-10.8)
[2021-01-05] MEDS: SODIUM CHLOR 0.9% PF (SALINE LOCK) 10ML VIAL/SYR IV SCH ×2 (06:17→12:18)
[2021-01-05] MEDS: LEVOTHYROXINE SODIUM 25 MCG TAB PO SCH (06:17)
[2021-01-05] MEDS: BUDESONIDE (INHALATION) 0.5 MG/2 ML NEB NEB SCH (06:20)
[2021-01-05] MEDS: ALBUTEROL SULF 2.5 MG/0.5ML(0.5%) NEB SOLN NEB SCH ×2 (06:20→12:14)
[2021-01-05] MEDS: InsuLIN REG 1unit/0.01ml Soln (100units/ml) SC SCH ×3 (06:21→17:37)
[2021-01-05] MEDS: ACCU-CHEK COMFORT CURVE STRIP VI SCH ×3 (06:21→17:37)
[2021-01-05 06:22] LABS: Potassium 5.1 mmol/L (3.5-5.1)
[2021-01-05 06:41] LABS: Albumin 2.5 g/dL (3.4-5.0); BUN/Creatinine Ratio 25.4; Bilirubin, Total 1.2 mg/dL (0.2-1.0); Calcium 8.8 mg/dL (8.5-10.1); Total Protein 6.9 g/dL (6.4-8.2)
[2021-01-05] MEDS ORDERED: SODIUM CHLORIDE 0.9% 500 ML IV ONE ×2 (07:30→17:30)
[2021-01-05] MEDS: ASPirin 81 mg TAB PO SCH (07:52)
[2021-01-05] MEDS: ZINC SULFATE 220mg CAP or TAB PO SCH (07:52)
[2021-01-05] MEDS: ASCORBIC ACID 500 MG TAB PO SCH (07:53)
[2021-01-05] MEDS: MULTIPLE VITAMIN TAB PO SCH (07:53)
[2021-01-05] MEDS: FAMOTIDINE (10MG/ML) 2ML VL IV SCH (10:00)
[2021-01-05] MEDS: ENOXAPARIN SOD 150 MG/1 ML SYRINGE SC SCH (10:00)
[2021-01-05] MEDS: DexAMETHasone SOD PHOS 10MG/1ML VIAL INJ IV SCH (10:00)
[2021-01-05] MEDS: DOXYCYCLINE 100MG/250ML 250 ML IV SCH (10:48)
[2021-01-05] MEDS ORDERED: MORPHINE SULF INJ 2 MG/ML SYRINGE 1ML IV PRN (11:15)
[2021-01-05] MEDS: D5W/SOD CHL 0.45% 1,000 ML IV SCH ×2 (12:18→17:38)
[2021-01-05] MEDS ORDERED: NOREPINEPHRINE 8 MG/250ML KIT 250 ML IV SCH ×2 (17:45→20:00)
[2021-01-05] MEDS ORDERED: DOPamine 1600MCG/ML D5W 250 ML IV SCH (17:45)
[2021-01-05] MEDS ORDERED: ETOMIDATE (2MG/ML) 20ML VIAL IV ONE ×2 (19:02→21:00)
[2021-01-05] MEDS ORDERED: SUCCINYLCHOLINE CHLORIDE 20 MG/ML 10ML VIAL IV ONE ×2 (19:03→21:00)
[2021-01-05] MEDS ORDERED: PHENYLEPHRINE IV 250 ML IV ONE (19:04)
[2021-01-05] MEDS ORDERED: VASOPRESSIN 20 UNIT/ML ONE (19:48)
[2021-01-05] MEDS ORDERED: PHENYLEPHRINE IV 250 ML IV SCH (20:00)
[2021-01-05] MEDS ORDERED: MIDAZOLAM DRIP 50 mg/50mL 50 ML IV SCH (20:00)
[2021-01-05] MEDS ORDERED: PROPOFOL 100 ML IV SCH (20:00)
[2021-01-05] MEDS ORDERED: VASOPRESSIN 50 UNITS in D5W 5% 247.5 ML IV SCH (20:00)
[2021-01-05] MEDS ORDERED: SODIUM BICARBONATE 8.4% INJ 50ML SYRINGE ONE (22:04)
[2021-01-05] MEDS ORDERED: EPINEPHrine HCL 1 MG/10 ML SYRG ONE (22:14)
[2021-01-06] MEDS ORDERED: SODIUM BICARBONATE 8.4% INJ 50ML SYRINGE IV ONE (01:59)
[2021-01-06] MEDS ORDERED: SODIUM BICARBONATE 8.4 % INJ 50ML VIAL IV ONE (01:59)
[2021-01-06] MEDS ORDERED: EPINEPHrine HCL 1 MG/10 ML SYRG IV ONE (01:59)
[2021-01-06] MEDS ORDERED: CALCIUM CHLOR(10%) 100MG/ML 10ML SYRINGE IV ONE ×2 (01:59)
[2021-01-06] MEDS ORDERED: FUROSEMIDE 100 MG/10ML VIAL IV SCH (10:00)
== END 2021-01-06 02:00 | DRG 871 ==
LOC: EDBD 18:40 → ER 18:42 → TELE 18:43 → TELE-WESTW 12-31 03:30 → ICU WEST 01-05 17:46
PROVIDERS: ADMIT Nurse Practitioner Family; ATTEND Internal Medicine
PROC: 5A09457 Assistance with Respiratory Ventilation, 24-96 Consecutive Hours, Continuous Positive Airway Pressure (ICD-10-PCS; 2021-01-03)
PROC: 0BH17EZ Insertion of Endotracheal Airway into Trachea, Via Natural or Artificial Opening (ICD-10-PCS; principal; 2021-01-05)
PROC: 5A1935Z Respiratory Ventilation, Less than 24 Consecutive Hours (ICD-10-PCS; 2021-01-06)
PROC: 5A12012 Performance of Cardiac Output, Single, Manual (ICD-10-PCS; 2021-01-06)
DX: A41.89 Other specified sepsis (principal); U07.1 COVID-19; J12.82 Pneumonia due to coronavirus disease 2019; I50.43 Acute on chronic combined systolic (congestive) and diastolic (congestive) heart failure; J96.01 Acute respiratory failure with hypoxia; I21.4 Non-ST elevation (NSTEMI) myocardial infarction; N17.0 Acute kidney failure with tubular necrosis; J96.02 Acute respiratory failure with hypercapnia; J44.1 Chronic obstructive pulmonary disease with (acute) exacerbation; J98.11 Atelectasis; I13.0 Hypertensive heart and chronic kidney disease with heart failure and stage 1 through stage 4 chronic kidney disease, or unspecified chronic kidney disease; J44.0 Chronic obstructive pulmonary disease with (acute) lower respiratory infection; E66.2 Morbid (severe) obesity with alveolar hypoventilation; Z68.43 Body mass index [BMI] 50.0-59.9, adult; E87.6 Hypokalemia; I48.91 Unspecified atrial fibrillation; N18.32 Chronic kidney disease, stage 3b; D63.8 Anemia in other chronic diseases classified elsewhere; E78.5 Hyperlipidemia, unspecified; E03.9 Hypothyroidism, unspecified; I25.10 Atherosclerotic heart disease of native coronary artery without angina pectoris; K21.9 Gastro-esophageal reflux disease without esophagitis; E11.22 Type 2 diabetes mellitus with diabetic chronic kidney disease; Z90.49 Acquired absence of other specified parts of digestive tract; Z90.710 Acquired absence of both cervix and uterus; I25.2 Old myocardial infarction; Z79.52 Long term (current) use of systemic steroids; Z66 Do not resuscitate; Z74.01 Bed confinement status; Z82.49 Family history of ischemic heart disease and other diseases of the circulatory system; Z83.3 Family history of diabetes mellitus; I46.9 Cardiac arrest, cause unspecified
CPT/HCPCS: 36415; 36600; 71045; 76775; 80048; 80053; 80061; 81001; 82306; 82570; 82805; 82962; 83036; 83605; 83735; 83880; 84100; 84156; 84300; 84443; 84484; 85025; 85610; 85730; 87040; 87070; 87205; 87426; 93005; 93306; 94640; 94660; 96365; 96366; 97110; 99291; G0378; J0330; J1100; J1815; J3480; J3490; J7060